=== PATIENT | female | born 1935 | race Caucasian/White ===

== ENCOUNTER 2018-02-27 11:31 | Emergency (ER) | payer OTHER ==
[~2018-02-27] VITALS: Ht 185.4 cm; Wt 63.5 kg
[2018-02-27 11:39] VITALS: BP 152/71
[2018-02-27] MEDS ORDERED: ONDANSETRON HCL 4 MG/2 ML VIAL IV ONE (13:00)
[2018-02-27] MEDS ORDERED: MORPHINE SULFATE 8mg/ml INJ SDV IV ONE (13:00)
[2018-02-27] MEDS ORDERED: ONDANSETRON HCL 4 MG/2 ML VIAL IM ONE (13:30)
[2018-02-27] MEDS ORDERED: MORPHINE SULFATE 8mg/ml INJ SDV IM ONE (13:30)
== END 2018-02-27 15:16 | disposition home or self-care (01) ==
LOC: EDBD 11:31 → ER 11:31
DX: S42.202A Unspecified fracture of upper end of left humerus, initial encounter for closed fracture (principal); Z88.1 Allergy status to other antibiotic agents; W19.XXXA Unspecified fall, initial encounter; Y99.8 Other external cause status; Y92.009 Unspecified place in unspecified non-institutional (private) residence as the place of occurrence of the external cause
CPT/HCPCS: 29105; 73030; 73060; 96372; 99284; J2270; J2405